=== PATIENT | male | born 1980 | race Caucasian/White ===

== ENCOUNTER 2018-03-04 12:25 | Emergency (ER) | payer OTHER ==
[~2018-03-04] VITALS: Ht 177.8 cm; Wt 79.4 kg
[~2018-03-04 12:25] MED LIST: ALBU90OI INH; ANTIDEPRESSENT; BUPR150T2; DIPH50 PO; IBUP600 PO; NAPR550 PO; Norco 5-325 Ta1 EACH PO; RANI150 PO; RXHYDACE PO; RXNAPNA550 PO; Silvadene20 GM TOP; Vibramycin100 MG PO; Zithromax250 MG PO
[2018-03-04] MEDS ORDERED: Flonase 0.05% N16 GM (13:36)
[2018-03-05] MEDS ORDERED: ALBU90OI INH (01:51)
[2018-03-05] MEDS ORDERED: Prednisone20 MG PO (03:00)
== END 2018-03-04 13:43 | disposition home or self-care (01) ==
LOC: ER 12:25
DX: J34.3 Hypertrophy of nasal turbinates (principal); Z79.899 Other long term (current) drug therapy; F17.210 Nicotine dependence, cigarettes, uncomplicated
CPT/HCPCS: 99282

== ENCOUNTER 2018-03-05 01:35 | Emergency (ER) | payer OTHER ==
[~2018-03-05] VITALS: Ht 177.8 cm; Wt 79.4 kg
[~2018-03-05 01:35] MED LIST changes: +Flonase 0.05% N16 GM
[2018-03-05] MEDS ORDERED: ALBU90OI INH (01:51)
[2018-03-05] MEDS ORDERED: Prednisone20 MG PO (03:00)
== END 2018-03-05 03:15 | disposition home or self-care (01) ==
LOC: ER 01:35
DX: J33.9 Nasal polyp, unspecified (principal); R09.81 Nasal congestion; T48.5X1A Poisoning by other anti-common-cold drugs, accidental (unintentional), initial encounter; F17.210 Nicotine dependence, cigarettes, uncomplicated
CPT/HCPCS: 99283

== ENCOUNTER 2018-12-04 20:46 | Emergency (ER) | payer OTHER ==
[~2018-12-04] VITALS: Ht 177.8 cm; Wt 77.1 kg
[~2018-12-04 20:46] MED LIST changes: +Prednisone20 MG PO
[2018-12-04] MEDS ORDERED: ERYT1OIN LEFTEYE (22:21)
== END 2018-12-04 22:28 | disposition home or self-care (01) ==
LOC: ER 20:46
DX: T15.02XA Foreign body in cornea, left eye, initial encounter (principal); F17.210 Nicotine dependence, cigarettes, uncomplicated; W45.8XXA Other foreign body or object entering through skin, initial encounter
CPT/HCPCS: 99282; A9270

== ENCOUNTER 2020-05-05 13:20 | Observation (INO) | payer OTHER ==
[~2020-05-05] VITALS: Ht 177.8 cm; Wt 77.1 kg
[~2020-05-05 13:20] MED LIST changes: +ERYT1OIN LEFTEYE
[2020-05-05 13:53] LABS: Source, Urine Clean Catch
[2020-05-05 13:59] LABS: BASOPHILS ABSOLUTE AUTO 0.08 K/mm3 (0.00-0.23); BASOPHILS PERCENT AUTO 1 % (0-2); EOSINOPHILS ABSOLUTE AUTO 0.17 K/mm3 (0.00-0.68); EOSINOPHILS PERCENT AUTO 2 % (0-6); Hematocrit 43.6 % (37.0-53.0); Hemoglobin 14.6 g/dL (13.5-17.5); IMMATURE GRAN ABSOLUTE AUTO 0.04 K/mm3 (0.00-0.10); IMMATURE GRAN PERCENT AUTO 1 % (0-1); LYMPHOCYTES ABSOLUTE AUTO 2.37 K/mm3 (0.84-5.20); LYMPHOCYTES PERCENT AUTO 27 % (21-46); MONOCYTES ABSOLUTE AUTO 0.44 K/mm3 (0.16-1.47); MONOCYTES PERCENT AUTO 5 % (4-13); Mean Corpuscular HGB 30.9 pg (26.0-34.0); Mean Corpuscular HGB Conc 33.5 g/dL (31.5-36.5); Mean Corpuscular Volume 92 fL (80-100); Mean Platelet Volume 8.8 fL (9.1-12.4); NEUTROPHILS ABSOLUTE AUTO 5.54 K/mm3 (1.96-9.15); NEUTROPHILS PERCENT AUTO 64 % (41-73); Platelet Count 357 K/mm3 (150-400); RDW Coefficient Variation 11.9 % (11.7-14.2); RDW Standard Deviation 41.1 fL (35.1-46.3); Red Blood Cell Count 4.72 M/mm3 (4.30-5.90); White Blood Cell Count 8.64 K/mm3 (4.00-11.30)
[2020-05-05] MEDS ORDERED: Venlafaxine HCl75 M1 PO (14:05)
[2020-05-05 14:07] LABS: Appearance, Urine Clear (Clear); Bilirubin, Urine Neg (Neg); Blood, Urine Neg (Neg); Color, Urine Yellow (P-Yellow); Glucose Qualitative, Urine Neg (Neg); Ketones, Urine Neg (Neg); Leukocyte Esterase, Urine Neg (Neg); Nitrite, Urine Neg (Neg); Protein, Urine Neg (Neg); Specific Gravity, Urine 1.005 (1.003-1.022); Urobilinogen, Urine NORM (Normal)
[2020-05-05 14:18] LABS: Alanine Aminotransfer (ALT/SGP 29 U/L (12-78); Albumin, Blood 4.1 g/dL (3.4-5.0); Albumin/Globulin Ratio 1.2 (0.8-1.8); Alk Phos 76 U/L (50-136); Anion Gap 4 mmol/L (6-16); Aspartate Aminotrans (AST/SGOT 22 U/L (12-37); Bilirubin, Total 1.3 mg/dL (0.1-1.0); Blood Urea Nitrogen 8 mg/dL (8-24); Bun/Creatinine Ratio 10.6 (12.0-20.0); CO2, Blood 31 mmol/L (21-32); Calcium, Blood 8.8 mg/dL (8.5-10.1); Chloride, Blood 107 mmol/L (98-108); Creatinine, Blood 0.75 mg/dL (0.60-1.20); Ethanol (Alcohol), Blood, Med 124 mg/dL; Globulin, Blood 3.3 g/dL (2.2-4.0); Glomerular Filtration Rate >60 (60-); Glucose, Blood 90 mg/dL (70-99); Potassium, Blood 3.8 mmol/L (3.5-5.5); Salicylate <1.7 mg/dL (2.8-20.0); Sodium, Blood 142 mmol/L (136-145); Thyroxine (T4) 9.8 ug/dL (4.5-12.1); Total Protein, Blood 7.4 g/dL (6.4-8.2)
[2020-05-05 14:22] LABS: U Cannabinoids Screen DETECTED
[2020-05-05 14:23] LABS: U Amphetamine Screen Not Detected; U Barbituate Screen Not Detected; U Benzodiazapine Screen Not Detected; U Buprenorphine Screen Not Detected; U Cocaine Screen Not Detected; U Methadone Screen Not Detected; U Methamphetamine Screen Not Detected; U Opiates Screen Not Detected; U Oxycodone Screen Not Detected; U Phencyclidine Screen Not Detected; U Propoxyphene Screen Not Detected
[2020-05-05 14:27] LABS: Acetaminophen, Random <2.0 ug/mL (10.0-30.0)
[2020-05-05 14:31] LABS: Base Excess Venous 5.1 mmol/L; Bicarbonate Venous 27.4 mmol/L (24.0-30.0); PCO2 Venous 54.6 mmHg (38-42); PO2 Venous 58.4 mmHg (38-42); pH Blood Venous 7.36 (7.34-7.37)
[2020-05-05 15:49] LABS: Influenza A, PCR NEGATIVE (NEGATIVE); Influenza B, PCR NEGATIVE (NEGATIVE); Resp Syncytial Virus, PCR NEGATIVE (NEGATIVE); SARS-Cov-2 (COVID-19) PCR, MMC NEGATIVE (NEGATIVE)
[2020-05-06] MEDS ORDERED: TRAZ50 PO (09:39)
== END 2020-05-06 10:03 | disposition home or self-care (01) ==
LOC: ER 13:20 → EOR 13:21
PROVIDERS: Emergency Medicine; ADMIT Emergency Medicine
DX: F33.2 Major depressive disorder, recurrent severe without psychotic features (principal); F10.20 Alcohol dependence, uncomplicated; T14.91XA Suicide attempt, initial encounter; F17.210 Nicotine dependence, cigarettes, uncomplicated; Z20.822 Contact with and (suspected) exposure to COVID-19; Z79.899 Other long term (current) drug therapy; X76.XXXA Intentional self-harm by smoke, fire and flames, initial encounter
CPT/HCPCS: 0241U; 80053; 81003; 82375; 82803; 84436; 84443; 85025; 99285; A9270; G0378; G0480; Q3014

== ENCOUNTER → 2023-11-11 | Outpatient (CLI) | payer OTHER ==
[~2023-11-11] MED LIST changes: +DICY20 PO; +ONDA4ODT MM; +TRAZ50 PO; +Venlafaxine HCl75 M1 PO
[2023-11-11 18:50] LABS: BASOPHILS ABSOLUTE AUTO 0.05 K/mm3 (0.00-0.23); BASOPHILS PERCENT AUTO 1 % (0-2); EOSINOPHILS ABSOLUTE AUTO 0.14 K/mm3 (0.00-0.68); EOSINOPHILS PERCENT AUTO 2 % (0-6); Hematocrit 40.1 % (37.0-53.0); Hemoglobin 13.3 g/dL (13.5-17.5); IMMATURE GRAN ABSOLUTE AUTO 0.01 K/mm3 (0.00-0.10); IMMATURE GRAN PERCENT AUTO 0 % (0-1); LYMPHOCYTES ABSOLUTE AUTO 2.02 K/mm3 (0.84-5.20); LYMPHOCYTES PERCENT AUTO 28 % (21-46); MONOCYTES ABSOLUTE AUTO 0.33 K/mm3 (0.16-1.47); MONOCYTES PERCENT AUTO 5 % (4-13); Mean Corpuscular HGB 31.2 pg (26.0-34.0); Mean Corpuscular HGB Conc 33.2 g/dL (31.5-36.5); Mean Corpuscular Volume 94 fL (80-100); Mean Platelet Volume 9.8 fL (9.1-12.4); NEUTROPHILS PERCENT AUTO 65 % (41-73); Platelet Count 256 K/mm3 (150-400); RDW Coefficient Variation 11.9 % (11.7-14.2); RDW Standard Deviation 40.9 fL (35.1-46.3); Red Blood Cell Count 4.26 M/mm3 (4.30-5.90); White Blood Cell Count 7.35 K/mm3 (4.00-11.30)
[2023-11-11 20:47] LABS: Alanine Aminotransfer (ALT/SGP 25 U/L (12-78); Albumin, Blood 4.2 g/dL (3.4-5.0); Albumin/Globulin Ratio 1.5 (0.8-1.8); Alk Phos 67 U/L (50-136); Anion Gap 9 mmol/L (3-11); Aspartate Aminotrans (AST/SGOT 16 U/L (12-37); Bilirubin, Total 1.5 mg/dL (0.1-1.0); Blood Urea Nitrogen 10 mg/dL (8-24); Bun/Creatinine Ratio 12.4 (12.0-20.0); CHOL/HDL RATIO 2.1; CO2, Blood 28 mmol/L (21-32); Calcium, Blood 9.5 mg/dL (8.5-10.1); Chloride, Blood 109 mmol/L (98-108); Cholesterol 147 mg/dL (50-200); Creatinine, Blood 0.81 mg/dL (0.60-1.20); Globulin, Blood 2.8 g/dL (2.2-4.0); Glomerular Filtration Rate 113 (60-); Glucose, Blood 91 mg/dL (70-99); HDL Cholesterol 70 mg/dL (>39); LDL/HDL RATIO 0.8; Low Density Lipoprotein Chol 56 mg/dL (0-110); Potassium, Blood 4.1 mmol/L (3.5-5.5); Sodium, Blood 142 mmol/L (136-145); Triglycerides 107 mg/dL (30-160); Very Low Density Lipoprot Chol 21 mg/dL (6-32)
[2023-11-14 15:58] LABS: HIV 1,2 COMBO ANTIGEN/ANTIBODY Negative (Negative)
[2023-11-14 16:34] LABS: HEPATITIS C AB CIA INTERP Negative (Negative); HEPATITIS C ANTIBODY CIA INDEX 0.02 IV
[2023-11-15 15:19] LABS: APTIMA MEDIA TYPE Urine; C. TRACHOMATIS BY TMA Negative (Negative); N. GONORRHOEAE BY TMA Negative (Negative); SPECIMEN SOURCE Urine
[2023-11-19 15:04] LABS: TESTOSTERONE, FREE BY DIALYSIS 47.2 pg/mL (47.0-244.0); TESTOSTERONE, TOTAL MASS SPEC 379.7 ng/dL (300.0-890.0)
== END | disposition home or self-care (01) ==
LOC: LAB 17:34 → LAB SHORT 17:34
PROVIDERS: Family Medicine
DX: Z00.00 Encounter for general adult medical examination without abnormal findings (principal); Z13.6 Encounter for screening for cardiovascular disorders; K92.1 Melena; R53.82 Chronic fatigue, unspecified; Z72.51 High risk heterosexual behavior
CPT/HCPCS: 80053; 80061; 82306; 84402; 84403; 84443; 85025; 86803; 87389; 87491; 87591